=== PATIENT | female | born 1955 | race Caucasian/White ===

== ENCOUNTER → 2016-08-03 | Outpatient (CLI) | payer BC ==
[2016-02-21 10:20] VITALS: BP 132/67
[~2016-08-03] MED LIST: AMLO5TAB2 PO; ANAS1TAB3 PO; MESA800T2 PO; METO100T11 PO; OMEP20CA5 PO; OMEP40CA2 PO; OXYC1TAB7 PO; PREG75CA PO
--- NOTE | 2016-08-03 11:25 | RAD ---
EXAM: Right breast ultrasound. HISTORY: Personal history of right breast cancer status post breast conservation therapy. New density on mammography. COMPARISON: Today's mammography. FINDINGS: Sonographic evaluation of the right breast was performed at the breast conservation therapy site. This reveals a fluid collection measuring 4.1 x 4.0 x 2.7 cm. It contains a mostly thin septation with a questionable thick or focus along the septations peripherally seen on one image. There is no clear suspicious solid component. There is no internal flow on Doppler. This most likely represents a seroma. IMPRESSION: 1. BI-RADS Category 2: Benign findings. 2. The mammographic finding corresponds with a mildly complicated 4.1 cm seroma. This could be aspirated under ultrasound guidance if clinically desired.
--- NOTE | 2016-08-04 10:57 | RAD ---
DATE: 08/03/2016. EXAM: DIGITAL DIAGNOSTIC BILATERAL. HISTORY: Personal history of right breast cancer status post right breast conservation therapy. COMPARISON: Today's sonography, 07/29/2015. This study was interpreted with the benefit of Computerized Aided Detection (CAD ). FINDINGS: The breast parenchyma shows scattered fibroglandular densities. There are changes of breast conservation therapy slightly superior to the nipple line on the right. Underlying this, there is a new 4.1 cm masslike opacity that corresponds with a septated seroma on today's sonography. There is associated retraction of the overlying skin. There are no suspicious microcalcifications. On the left, there are no suspicious masses, consolidations or architectural distortion. BI-RADS CATEGORY: 2 BENIGN FINDING. RECOMMENDED FOLLOW-UP: 1. 12M 12 MONTH FOLLOW-UP. 2. The right-sided seroma could be aspirated under sonographic guidance if clinically desired. PQRS compliance statement: Patient information was entered into a reminder system with a target due date 08/03/2017 for the next mammogram. Mammography is a sensitive method for finding small breast cancers, but it does not detect them all and is not a substitute for careful clinical examination. A negative mammogram does not negate a clinically suspicious finding and should not result in delay in biopsying a clinically suspicious abnormality. "Our facility is accredited by the [employer] Mammography Program." MTDD
== END | disposition home or self-care (01) ==
LOC: MAMMO 10:09
PROVIDERS: ATTEND Internal Medicine Hematology & Oncology
DX: C50.111 Malignant neoplasm of central portion of right female breast (principal); Z85.3 Personal history of malignant neoplasm of breast
CPT/HCPCS: 76641; G0204; 77066

== ENCOUNTER → 2016-08-19 | Outpatient (CLI) | payer BC ==
[2016-02-21 10:20] VITALS: BP 132/67
--- NOTE | 2016-08-19 12:21 | KCIC ---
PROCEDURE Bilateral hands, single view; bilateral feet, single view; cervical spine, single view; pelvis, single view; bilateral knees, single view. HISTORY Arthritis. FINDINGS Bilateral knees: A frontal standing view both knees is obtained. There is no fracture, dislocation or subluxation. There is no significant joint space narrowing or spurring. Pelvis: A frontal view of the pelvis is obtained. There is no fracture, dislocation or subluxation. There is a suspected bone island within the right femoral head-neck junction. There is minimal subchondral sclerosis involving the sacroiliac joints. There are pelvic phleboliths. Bilateral hands: A frontal view of both hands is obtained. There is no fracture, dislocation or subluxation. The alignment and joint spaces are unremarkable. There is a tiny ossicle or osteophyte at the base of the left 1st metacarpal, possibly developmental. There is a suspected bone island within the tuft of the right 3rd distal phalanx. Bilateral feet: Oblique views of both feet are obtained. There is no fracture, dislocation or subluxation. There is increased flexion of the 2nd toes, likely positional rather than due to hammertoe deformities. There is suspected degenerative change involving the left talonavicular joint, difficult to assess on a single projection. Cervical spine: A lateral view of the cervical spine is obtained. There is no significant listhesis. There are thin marginal posterior syndesmophytes. There is facet arthropathy at all levels. There is endplate remodeling at multiple levels. The disc spaces are preserved. IMPRESSION 1. No acute osseous finding. 2. Thin marginal posterior syndesmophytes within the cervical spine. This is nonspecific and can be seen in the setting of ankylosing spondylitis. 3. Mild subchondral sclerosis involving the sacroiliac joints, not clearly within limits to suggest sacroiliitis. 4. Suspected degenerative change involving the left talonavicular joint, difficult to assess on a single projection. Electronically signed by: Lizzette Muir (Aug 19, 2016 12:19:36)
== END | disposition home or self-care (01) ==
LOC: KCIC 11:07
PROVIDERS: ATTEND Internal Medicine Rheumatology
DX: M25.50 Pain in unspecified joint (principal); M19.90 Unspecified osteoarthritis, unspecified site; M79.642 Pain in left hand; M79.641 Pain in right hand; M25.562 Pain in left knee; M25.561 Pain in right knee; M79.672 Pain in left foot; M79.671 Pain in right foot; M54.2 Cervicalgia
CPT/HCPCS: 72020; 72170; 73120; 73565; 73620

== ENCOUNTER → 2017-08-04 | Outpatient (CLI) | payer BC | END | disposition home or self-care (01) | LOC: MAMMO 08:51 | DX: C50.911 Malignant neoplasm of unspecified site of right female breast (principal); Z17.0 Estrogen receptor positive status [ER+]; Z85.3 Personal history of malignant neoplasm of breast; Z92.3 Personal history of irradiation | CPT/HCPCS: 77066; G0279 ==

== ENCOUNTER → 2017-10-14 | Outpatient (CLI) | payer BC | END | disposition home or self-care (01) | LOC: KCIC MRI 14:26 | DX: S83.241A Other tear of medial meniscus, current injury, right knee, initial encounter (principal); M17.11 Unilateral primary osteoarthritis, right knee; M25.461 Effusion, right knee; M22.41 Chondromalacia patellae, right knee; I10 Essential (primary) hypertension; K21.9 Gastro-esophageal reflux disease without esophagitis; X58.XXXA Exposure to other specified factors, initial encounter; Y93.89 Activity, other specified; Y92.89 Other specified places as the place of occurrence of the external cause; Y99.8 Other external cause status | CPT/HCPCS: 73721 ==

== ENCOUNTER → 2018-08-05 | Outpatient (CLI) | payer BC ==
[2016-02-21 10:20] VITALS: BP 132/67
[~2018-08-05] MED LIST changes: +AMLO5TAB10 PO; -AMLO5TAB2 PO; -ANAS1TAB3 PO; +ANAS1TAB47 PO; +METO-247 PO; -METO100T11 PO; +PREG100C PO
--- NOTE | 2018-08-05 10:48 | RAD ---
DATE: 08/05/2018 EXAM: MAMMO ALVA GURDEEP BILAT HISTORY: Previous right breast cancer COMPARISON: 08/04/2017 This study was interpreted with the benefit of Computerized Aided Detection (CAD). Breast Density: SCATTERED The breast parenchyma shows scattered fibroglandular densities. Breast parenchyma level B. FINDINGS: 2-D and 3-D tomosynthesis imaging was performed in CC and MLO projections. There is an unchanged spiculated density in the posterior aspect of the right breast compatible with post therapeutic changes in this patient with a history of a lumpectomy with radiation therapy. There is unchanged overlying skin deformity and thickening. No new or enlarging density is seen in either breast. No suspicious calcifications are evident. IMPRESSION: Stable mammograms without evidence of malignancy. BI-RADS CATEGORY: 2 BENIGN FINDING(S) RECOMMENDED FOLLOW-UP: 12M 12 MONTH FOLLOW-UP PQRS compliance statement: Patient information was entered into a reminder system with a target due date for the next mammogram. Mammography is a sensitive method for finding small breast cancers, but it does not detect them all and is not a substitute for careful clinical examination. A negative mammogram does not negate a clinically suspicious finding and should not result in delay in biopsying a clinically suspicious abnormality. "Our facility is accredited by the [employer] Mammography Program."
== END | disposition home or self-care (01) ==
LOC: MAMMO 09:56
PROVIDERS: ATTEND Internal Medicine Hematology & Oncology
DX: Z08 Encounter for follow-up examination after completed treatment for malignant neoplasm (principal); Z85.3 Personal history of malignant neoplasm of breast
CPT/HCPCS: 77066; G0279; 77062

== ENCOUNTER → 2019-03-23 | Outpatient (CLI) | payer BC ==
[2016-02-21 10:20] VITALS: BP 132/67
[~2019-03-23] MED LIST changes: +PREG150C PO; +TRIA1TAB3 PO
--- NOTE | 2019-03-23 14:20 | KCIC ---
AP view of the pelvis Clinical indications: Psoriasis. Joint pain. FINDINGS: There is asymmetric ankylosis of the upper aspect of the left SI joint. This may be seen with seronegative spondyloarthropathy. No erosive arthropathy of either SI joint or symphysis pubis or either hip joint is seen. No acute fracture or lytic process is evident. 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 Electronically signed by: Sushil Rasmussen MD (03/23/2019 2:17 PM) [id number]
--- NOTE | 2019-03-23 14:28 | KCIC ---
Indications: Psoriasis. Joint pain. M 25.50 3 view study of the right hand: No acute fracture or dislocation or lytic process is seen. No erosive arthropathy is evident. There is degenerative spurring of the dorsal aspect of the second DIP joint. Mild degenerative joint space narrowing of the lateral aspect of the first metacarpal phalangeal joint is seen. Mild degenerative joint space narrowing of the first carpal metacarpal joint. 3 view study of the left hand: No acute fracture or dislocation or lytic process is evident. No erosive arthropathy is evident. No significant arthritic change is seen. IMPRESSION: No erosive arthropathy of either hand. 3 view left foot study: No acute fracture or dislocation or lytic process is seen. No erosive arthropathy is evident. There is a prominent medial spur of the navicular bone. There is a prominent spur of the lateral base of the fifth metatarsal bone. Moderate-sized plantar spur of the calcaneus is seen. 3 view right foot study: No acute fracture or dislocation or lytic process is seen. Moderate-sized plantar spur of the calcaneus is seen. No erosive arthropathy is seen. IMPRESSION: No erosive arthropathy of either foot. 3 view study of the left knee: No acute fracture or dislocation or lytic process is seen. No erosive arthropathy is evident. No significant joint space narrowing or spurring is seen. No joint effusion is seen radiographically. 3 view study of the right knee: No acute fracture or dislocation or lytic process evident. There is mild joint space narrowing and moderate spurring of the medial tibiofemoral joint compartment. There is minimal spurring without joint space narrowing of the lateral tibial femoral joint compartment. No erosive arthropathy is evident. No right knee joint effusion is seen. IMPRESSION: No erosive arthropathy of either knee joint. Electronically signed by: Sushil Rasmussen MD (03/23/2019 2:25 PM) [id number]
== END | disposition home or self-care (01) ==
LOC: KCIC 11:25
PROVIDERS: ATTEND Internal Medicine Rheumatology
DX: M77.32 Calcaneal spur, left foot (principal); M77.31 Calcaneal spur, right foot; M43.28 Fusion of spine, sacral and sacrococcygeal region; M77.8 Other enthesopathies, not elsewhere classified; M18.11 Unilateral primary osteoarthritis of first carpometacarpal joint, right hand
CPT/HCPCS: 72170; 73130; 73562; 73630

== ENCOUNTER → 2019-08-01 | Outpatient (CLI) | payer BC ==
[2016-02-21 10:20] VITALS: BP 132/67
--- NOTE | 2019-08-01 15:18 | KCIC ---
EXAM: Lumbar spine, 3 views. HISTORY: Pain. COMPARISON: None. FINDINGS: 3 views of the lumbar spine are obtained. There is mild S-shaped thoracolumbar scoliosis. There is no significant listhesis. The vertebral bodies are normal in height. There is mild global endplate remodeling. There are few small endplate Schmorl's nodes. There is facet arthropathy at the lumbosacral junction. There are cholecystectomy clips. IMPRESSION: 1. Mild multilevel degenerative change. 2. Mild scoliosis. Electronically signed by: Lizzette Muir MD (08/01/2019 3:16 PM) [facility] [place]
== END | disposition home or self-care (01) ==
LOC: KCIC 09:03
PROVIDERS: ATTEND Family Medicine
DX: M47.816 Spondylosis without myelopathy or radiculopathy, lumbar region (principal); M41.86 Other forms of scoliosis, lumbar region; M41.85 Other forms of scoliosis, thoracolumbar region; M51.46 Schmorl's nodes, lumbar region; M12.88 Other specific arthropathies, not elsewhere classified, other specified site
CPT/HCPCS: 72100

== ENCOUNTER → 2019-08-15 | Outpatient (CLI) | payer BC ==
[2016-02-21 10:20] VITALS: BP 132/67
--- NOTE | 2019-08-15 12:51 | RAD ---
Bilateral digital diagnostic mammogram INDICATION: History of breast cancer. Surveillance. COMPARISON: 08/04/2017, 08/05/2018. TECHNIQUE: CC and MLO views of both breasts were obtained with 2-D and 3-D technique and reviewed with computer-aided detection. FINDINGS: Scattered fibroglandular densities. Negative left mammogram. Stable benign surgical scar in the superior posterior right breast, consistent with a history of previous lumpectomy. No developing mass, unexplained architectural distortion or suspicious calcifications. IMPRESSION: Benign findings on bilateral mammogram. No evidence of malignancy. Recommend return to routine screening next due in one year. BI-RADS Category 2 Benign Patient entered into a reminder system with target due date for next mammogram. BI-RADS 2 -- benign findings
== END | disposition home or self-care (01) ==
LOC: MAMMO 09:21
PROVIDERS: ATTEND Internal Medicine Hematology & Oncology
DX: Z85.3 Personal history of malignant neoplasm of breast (principal)
CPT/HCPCS: 77066; G0279; 77062

== ENCOUNTER → 2019-08-25 | Day surgery (SDC) | payer BC ==
[~2019-08-25] MED LIST changes: +IV RINGERS,LACTATED 1000ML 1,000 ML IV SCH; +LIDOCAINE 2% PF 5 ML VIAL. ONE; +PROPOFOL 60 ML IV ONE
[2019-08-25 09:20] VITALS: BP 150/63
--- NOTE | 2019-08-25 15:20 | CONS ---
DATE OF CONSULTATION: 08/25/2019 REFERRING PHYSICIAN: Santiago Guerrero MD REASON FOR CONSULTATION: History of Galvan's and ulcerative colitis. HISTORY OF PRESENT ILLNESS: A 64-year-old female with past medical history significant for Galvan's, UC as well as hypertension, breast cancer, is seen in further evaluation for surveillance studies. She has controlled her reflux with Prilosec 20 mg daily, has no dysphagia. Weight and appetite are stable. Ulcerative colitis has been controlled with Asacol 2 daily. No extraintestinal manifestations of IBD are noted at this time. She is otherwise doing well since her last surveillance exam in 2016, she has no additional complaints. PAST MEDICAL HISTORY: Galvan's, UC, breast cancer, hypertension. ALLERGIES: SULFA AND CODEINE. MEDICATIONS: Include, Arimidex, Asacol, metoprolol, Prilosec, Lyrica and triamterene/hydrochlorothiazide. SOCIAL HISTORY: She is a nonsmoker, nondrinker. FAMILY HISTORY: Significant for hypertension and MIs. PAST SURGICAL HISTORY: Appendectomy, cholecystectomy, , breast cancer surgery. REVIEW OF SYSTEMS: As per records. PHYSICAL EXAMINATION: GENERAL: Reveals a well-nourished, well-developed female who is alert, cooperative, in no acute distress. VITAL SIGNS: Temperature is 98.1, pulse 67, respirations 20. LUNGS: Clear. CARDIOVASCULAR: Reveals an S1, S2 without S3, S4 or appreciable murmur. ABDOMEN: Reveals a soft abdomen, normal bowel sounds, without appreciable hepatosplenomegaly. IMPRESSION: 1. Galvan's well maintained on medical therapy. Surveillance exam is recommended at this time with biopsies. 2. Ulcerative colitis, in remission. Surveillance biopsies for dysplasia, recommended as well. Risks and benefits were discussed with the patient who understands the perforation of the procedures and she is willing to proceed. JERRY MATOS MD DR: ROSAURA/roberto JOB#: [id number] / [id number]
--- NOTE | 2019-08-28 15:07 | PATHOLOGY ---
[facility] Accession Number: [id number] . 01 Material submitted: . PART A: esophagus - DISTAL ESOPHAGEAL BIOPSY. Modifiers: distal PART B: colon - RIGHT COLON BIOPSY. Modifiers: right PART C: colon - TRANSVERSE COLON BIOPSY. Modifiers: transverse PART D: colon - LEFT COLON BIOPSY. Modifiers: left . 01 Clinical history: . History of Galvan's; UC . 02 Diagnosis: A. Esophageal biopsies, distal esophagus: - Reflux esophagitis. . B. Colonic mucosa, right colon biopsies: - Active chronic colitis, mild, without granulomas or specific features. . C. Colonic mucosa, transverse colon biopsies: - Active chronic colitis, mild to moderate, focally ulcerated, without granulomas or specific features. . D. Colonic mucosa, left colon biopsies: - Colonic mucosa showing reactive changes and no evidence of active chronic colitis. (JPM:kiera; 08/28/2019) [facility] [place]28/[place] 1147 Local . 02 Comment: Sections of the distal esophageal biopsy reveal segments of tangentially oriented hyperplastic squamous esophageal mucosa consistent with reflux esophagitis. There is no evidence of Galvan's change, dysplasia, or malignancy. . Sections of the right colon and left colon biopsies reveal segments of colonic mucosa showing mild to moderate active chronic colitis without granulomas or specific features. There are foci of acute cryptitis. There is focal ulceration in the transverse colon biopsy. There is no dysplasia or evidence of malignancy. . Sections of the left colon biopsy reveal multiple segments of colonic mucosa showing reactive changes. There is no evidence of an active chronic colitis or dysplasia. (JPM:kiera; 08/28/2019) . 02 Electronically signed: . Shawn Saunders MD, Pathologist NPI- [id number] . 01 Gross description: . A. The specimen is received in formalin, labeled "Dione Neumann, distal esophageal biopsy, R/O Galvan's". Received are three segments of pale galan soft tissue ranging in size from 0.3 to 0.5 cm in maximum dimensions. The specimen is submitted entirely in cassette A1. . B. The specimen is received in formalin, labeled "Dione Neumann, right colon biopsy, R/O UC". Received are seven segments of pale galan soft tissue ranging in size from 0.3 to 0.6 cm in maximum dimensions. The specimen is submitted entirely in cassette B1. . C. The specimen is received in formalin, labeled "Dione Neumann, transverse colon biopsy, R/O UC". Received are seven segments of pale galan soft tissue ranging in size from 0.3 to 0.4 cm in maximum dimensions. The specimen is submitted entirely in cassette C1. . D. The specimen is received in formalin, labeled "Dione Neumann, left colon biopsy, R/O UC". Received are eight segments of pale galan soft tissue ranging in size from 0.3 to 0.4 cm in maximum dimensions. The specimen is submitted entirely in cassette D1. (CAA; 08/25/2019) QAC/QAC 08/25/2019 1806 Local . 02 Pathologist provided ICD-10: K20.9, K52.9, K63.3 . 02 CPT . 294603, 522743, 750757, [id number] Specimen Comment: A courtesy copy of this report has been sent to [phone], [phone] Specimen Comment: [id number] Specimen Comment: Report sent to Specimen Comment: Report sent to / DR SHAIKH Performed at: 01 [facility] [address], [place] [id number] MD Jarrod Skelton MD Phone: [phone] Performed at: 02 [facility] [address] [place], [place] [id number] MD Shawn Saunders MD Phone: [phone]
== END ==
LOC: ENDOS 07:00
PROVIDERS: ATTEND Internal Medicine Gastroenterology
DX: Z12.11 Encounter for screening for malignant neoplasm of colon (principal); K51.90 Ulcerative colitis, unspecified, without complications; K51.00 Ulcerative (chronic) pancolitis without complications; K22.70 Barrett's esophagus without dysplasia; K64.0 First degree hemorrhoids; K44.9 Diaphragmatic hernia without obstruction or gangrene; K31.7 Polyp of stomach and duodenum; I10 Essential (primary) hypertension; Z85.3 Personal history of malignant neoplasm of breast; Z88.5 Allergy status to narcotic agent; Z88.0 Allergy status to penicillin; Z90.49 Acquired absence of other specified parts of digestive tract; Z98.890 Other specified postprocedural states; K21.9 Gastro-esophageal reflux disease without esophagitis
CPT/HCPCS: 43239; 45380; J2001; J2704

== ENCOUNTER → 2020-08-28 | Outpatient (CLI) | payer BC ==
[2019-08-25 09:20] VITALS: BP 150/63
[~2020-08-28] MED LIST changes: +AMLO-186 PO; -AMLO5TAB10 PO; -IV RINGERS,LACTATED 1000ML 1,000 ML IV SCH; -LIDOCAINE 2% PF 5 ML VIAL. ONE; +PREG-9 PO; -PREG75CA PO; -PROPOFOL 60 ML IV ONE
--- NOTE | 2020-08-28 16:11 | RAD ---
Examination: Digital bilateral diagnostic mammogram INDICATION: 65-year-old woman status post right malignant lumpectomy, 5th year of postreatment survei llance. COMPARISON: 08/15/2019 bilateral mammogram TECHNIQUE: CC and MLO views of both breasts were obtained with 2-D and 3-D technique and reviewed wit h computer-aided detection. FINDINGS: The breasts are almost entirely fatty replaced. A benign lumpectomy scar is present in the posterior superior right breast, with interval benign coar se calcifications of fat necrosis. No developing mass, suspicious calcifications or unexplained archi tectural distortion in either breast. IMPRESSION: Benign posttreatment changes. No evidence of malignancy in either breast. BI-RADS Category 2 Benign findings Recommend return to routine screening in one year. Patient entered into a reminder system with targeted due date for next mammogram. Electronically signed by: Radha Disla MD (08/28/2020 4:09 PM) [id number]
== END ==
LOC: MAMMO 10:22
PROVIDERS: ATTEND Family Medicine
DX: R92.8 Other abnormal and inconclusive findings on diagnostic imaging of breast (principal)
CPT/HCPCS: 77066

== ENCOUNTER 2020-12-03 10:57 | Outpatient (CLI) | payer BC ==
[~2020-12-03] VITALS: Ht 157.5 cm; Wt 82.0 kg
[2020-12-03] VITALS (13 sets, daily range): BP systolic 125–178; BP diastolic 57–77
[2020-12-03 11:39] LABS: HEMATOCRIT 37.4 % (36.0-47.0); HEMOGLOBIN 12.8 g/dL (12.0-15.5); RED BLOOD COUNT 4.47 x10^6/uL (3.50-5.40); RED CELL DISTRIBUTION WIDTH 13.9 % (11.5-14.5); WHITE BLOOD COUNT 9.5 x10^3/uL (4.0-11.0)
[2020-12-03] MEDS ORDERED: MULT-496 PO (11:43)
[2020-12-03] MEDS ORDERED: CHOL10004 PO (11:43)
[2020-12-03] MEDS ORDERED: ISOS30TA68 PO (11:43)
[2020-12-03] MEDS ORDERED: PREG200C PO (11:43)
[2020-12-03] MEDS ORDERED: VITA1CAP5 PO (11:43)
[2020-12-03 11:54] LABS: PROTHROMBIN TIME PATIENT 12.5 SEC (11.7-14.0)
[2020-12-03 12:01] LABS: CALCIUM 9.1 mg/dL (8.5-10.1); CREATININE 0.9 mg/dL (0.6-1.0); POTASSIUM 4.2 mmol/L (3.5-5.1)
[2020-12-03] MEDS ORDERED: NITROGLYCERIN 200 MCG/2 ML SYRINGE FOR CATH/VASC LAB. IART ONE (13:15)
[2020-12-03] MEDS ORDERED: VERAPAMIL 5 MG/2 ML VIAL. IART ONE (13:15)
[2020-12-03] MEDS ORDERED: HEPARIN for IV BOLUS 10,000 UNIT/10 ML VIAL. IART ONE (13:15)
[2020-12-03] MEDS ORDERED: MIDAZOLAM HCL/PF 5 MG/5 ML VIAL. IV ONE (13:15)
[2020-12-03] MEDS ORDERED: IODIXANOL 320 MG/ML 100 ML VIAL. IART ONE (13:15)
[2020-12-03] MEDS ORDERED: fentaNYL PF VIAL 100 MCG/2 ML VIAL IV ONE (13:15)
[2020-12-03] MEDS ORDERED: LIDOCAINE 1% PF 2 ML VIAL. INJ ONE (13:15)
--- NOTE | 2020-12-03 13:45 | CARD ---
MR#: [id number] Date of Study: 12/03/2020 Ordering Physician: AMBER MENG, Referring Physician: AMBER MENG, Tech: RT Josue(R) APPROVED REPORT Technologist: RT Josue(R) Nurse: Jess Servin RN Procedure(s) performed: FL TIME: 2.7 MIN DOSE: 48 GYCM2 CONTRAST: 59 ML MODERATE SEDATION: 30 MIN LHC, Coronary angiography, Left ventriculogram [facility] Clinical Frailty Scale [facility] Clinical Frailty Scale: Mildly Frail Heart Failure Heart Failure: Yes If Yes, Newly Diagnosed: Yes If Yes, HF Type: Diastolic If Yes, NYHA Class: Class II CASE TECHNIQUE IV conscious sedation was used throughout procedure with appropriate monitoring and was performed in the presence of a registered nurse who was an independent trained observer other than the physician p erforming the procedure. During this case, Fluoroscopy and low osmolar contrast were used for imaging . Specimen(s) Removed: N/A Estimated Blood loss: 15 cc's. PROCEDURE NARRATIVE Clinical information: 65 y.o woman presenting with unstable angina. Informed consent: Written informed consent was obtained from the patient after adequate discussion of the risks and yamilet efits of the procedure. Procedure details: ACCESS: The right wrist was prepped and draped in usual sterile fashion. Under 1% lidocaine local anesthesia a 6 [place] Terumo sheath was placed in the right radial artery via the Seldinger technique. DIAGNOSTIC ANGIOGRAPHY: Right and left coronary arteries were engaged with a 6 [place] TIG catheter. Diagnostic angiography i n multiple views were obtained. Next, a 6 [place] pigtail catheter was placed in the left ventricle a nd a LVEDP was measured. A pullback was performed after left ventriculography. All catheters were e xchanged over J-tip guidewire. FINDINGS: ======= Aorta: 140/80 LVEDP: 27 mmHg Left ventriculogram: Ejection fraction 55% Normal wall motion without any evidence of aortic or mitral insufficiency. Coronary angiography: LM: Large caliber vessel with normal angiographic appearance LAD: Large caliber vessel with mild luminal irregularities. D1: Small caliber vessel with normal angiographic appearance LCX: Moderate caliber non-dominant vessel with mild luminal irregularities OM1: Small caliber vessel with normal angiographic appearance RCA: Large caliber dominant vessel with mild luminal irregularities RPDA: Moderate caliber vessel with mild luminal irregularities. CLOSURE: At case completion the right radial sheath was removed and a Terumo radial band was applied with 11 m L of air. Hemostasis was achieved. COMPLICATIONS: No acute complications noted Conclusion 1. Acute on chronic diastolic HF, LVEDP 27 mm Hg 2. Normal LV systolic function. EF 55% 3. No significant coronary disease. Overall, flow suggestive of microvascular dysfunction. Recommendations Aggressive Medical Therapy Signed by : Heron Arce, Electronically Approved : 12/03/2020 13:45:19
--- NOTE | 2020-12-03 14:15 | NUR ---
2ml air removed from TR band at 1413. Approximately 1 min later, site began to ooze. RN re-inserted 2ml air, cleaned site, no further bleeding. VS stable. Patient eating w/ L hand. No pain. Will attempt to remove more air from band in 30 min. See assessments, VS.
[2020-12-03] MEDS ORDERED: FURO-68 PO (14:36)
--- NOTE | 2020-12-03 14:36 | NUR ---
Written prescription for Lasix 40mg three times a week given to patient by Dr. Arce. at bedside given Rx and taking to pharmacy at this time. Patient verbalized understanding.
--- NOTE | 2020-12-03 16:03 | NUR ---
Discharge Note: [facility] Discharge instructions and discharge home medications reviewed with Patient and a copy given. All questions have been answered and understanding verbalized. The following instructions and handouts were given: radial site care and adult moderate sedation Discontinued lines and drains: Peripheral IV intact. Patient discharged to Home or Self Care withSpousevia Wheelchair
== END 2020-12-03 16:20 | disposition home or self-care (01) ==
LOC: CCL 10:57
PROVIDERS: ATTEND Internal Medicine Cardiovascular Disease
DX: I20.0 Unstable angina (principal); I11.0 Hypertensive heart disease with heart failure; I50.33 Acute on chronic diastolic (congestive) heart failure; E11.9 Type 2 diabetes mellitus without complications; K21.9 Gastro-esophageal reflux disease without esophagitis; M19.90 Unspecified osteoarthritis, unspecified site; Z87.440 Personal history of urinary (tract) infections; Z90.49 Acquired absence of other specified parts of digestive tract; Z98.890 Other specified postprocedural states; Z79.899 Other long term (current) drug therapy; Z88.2 Allergy status to sulfonamides; Z88.5 Allergy status to narcotic agent
CPT/HCPCS: 36415; 80048; 85027; 85610; 93458; 99152; 99153; C1769; C1894; J1644; J2250; J3010; J3490; Q9967

== ENCOUNTER → 2021-09-01 | Outpatient (CLI) | payer MEDICARE ==
[2020-12-03 16:05] VITALS: BP 127/60
[~2021-09-01] MED LIST changes: +CHOL10004 PO; +FURO-68 PO; +ISOS30TA68 PO; +MULT-496 PO; +PREG200C PO; +VITA1CAP5 PO
--- NOTE | 2021-09-01 09:10 | RAD ---
PROCEDURE: MG DIGITAL BILAT DIAGNOSTIC MAMMO WITH ALVA, US BREAST RT HISTORY: The patient is 66 years old and is seen for Reason: HX RT BREAST CANCER,BILATERAL BREAST CONSTANTINE N / Spl. Instructions: / History: . COMPARISON: August 28, 2020 and August 15, 2019 TECHNIQUE: CC and MLO views of both breasts were obtained. Images were processed by the [employer] computer-aided detection system. Targeted ultrasound of the right breast was also performed. DENSITY: There are scattered fibroglandular densities. FINDINGS: Right mammogram: Postoperative changes within the right upper breast with dystrophic calcification, similar compared t o prior. Additional benign-appearing calcifications. No new suspicious mitral calcification, mass or architectural distortion. Right ultrasound: Heterogeneous lumpectomy site with dystrophic calcification. No mass or fluid colle ction within the region the patient's pain. Left mammogram: No new suspicious microcatheter dictation, mass or architectural distortion. IMPRESSION: 1. Benign findings. No evidence of malignancy. 2. No abnormality to correspond with patient's pain in the right breast. Recommend further clinical evaluation and imaging follow-up if duration of symptoms. Recommend annual screening mammograms per [employer] guidelines. She will be due in one year. BI-RADS category 2 Benign Patient entered into a reminder system for annual screening mammogram. Electronically signed by: Darek Camejo DO (09/01/2021 9:07 AM) [id number]
== END ==
LOC: MAMMO 08:06
PROVIDERS: ATTEND Family Medicine
DX: R92.1 Mammographic calcification found on diagnostic imaging of breast (principal); N64.4 Mastodynia; Z85.3 Personal history of malignant neoplasm of breast
CPT/HCPCS: 76641; 77066; G0279; 77062